=== PATIENT | male | born 1950 ===

== ENCOUNTER 2017-06-21 07:56 | Emergency (ER) | payer OTHER, MEDICARE ==
[2017-06-21 08:10] VITALS: RESP 16; O2SAT 97
[2017-06-21 08:11] VITALS: BMI 26.9
[2017-06-21] MEDS ORDERED: Oxycodone/Acetaminophen 5/325 mg Tab PO ONE (08:31)
--- NOTE | 2017-06-21 09:14 | ED PDOC ---
Upper Extremity Pain/Injury Time Seen by Provider: 06/21/17 08:30 Chief Complaint (Nursing): Upper Extremity Problem/Injury Chief Complaint (Provider): Left Shoulder Pain History Per: Patient History/Exam Limitations: no limitations Onset/Duration Of Symptoms: Days (x 3) Current Symptoms Are (Timing): Still Present Additional Complaint(s): Ranjit is a 67 y/o male who presents to the ED with a history of back surgery complaining of atraumatic pain in his left shoulder that started 3 days ago. He has difficulty moving his left arm, but denies numbness or tingling. He took Aleve for the pain with mild relief, and denies any other medical complaints. PMD: None Provided Past Medical History Reviewed: Historical Data, Nursing Documentation, Vital Signs Vital Signs: Last Vital Signs Temp 98.1 F 06/21/17 08:09 Pulse 93 H 06/21/17 08:09 Resp 16 06/21/17 08:09 BP 132/73 06/21/17 08:09 Pulse Ox 97 06/21/17 08:09 - Medical History PMH: HTN, Hypercholesterolemia, Kidney Stones Denies: Depression, Chronic Kidney Disease - Surgical History Surgical History: Back Surgery Denies: Pacemaker - Family History Family History: States: Unknown Family Hx - Social History Alcohol: < 2 Drinks/Day - Home Medications Home Medications: Ambulatory Orders Medication Instructions Recorded Telmisartan [Micardis] 1 tab PO DAILY 08/03/16 oxyCODONE/Acetaminophen [Percocet 1 tab PO Q6H PRN #5 tab 06/21/17 5/325 mg Tab] - Allergies Allergies/Adverse Reactions: Allergies Allergy/AdvReac Type Severity Reaction Status Date / Time Penicillins Allergy Mild RASH Verified 08/03/16 09:29 Review of Systems ROS Statement: Except As Marked, All Systems Reviewed And Found Negative Musculoskeletal: Positive for: Shoulder Pain (left). Negative for: Other ( numbness, tingling in left shoulder) Physical Exam - Reviewed Nursing Documentation Reviewed: Yes Vital Signs Reviewed: Yes - Physical Exam Appears: Positive for: Non-toxic, No Acute Distress Head Exam: Positive for: ATRAUMATIC, NORMAL INSPECTION, NORMOCEPHALIC Skin: Positive for: Normal Color, Warm, Dry Pulses-Radial (L): 2+ Pulses-Radial (R): 2+ Extremity: Positive for: Normal ROM (Normal ROM in hand, wrist, fingers; difficulty with abduction of left arm), Tenderness (shoulder joint), Capillary Refill (< 2 seconds, neurovascularly intact). Negative for: Deformity, Other ( erythema, step off, signs of cellulitis) - ECG O2 Sat by Pulse Oximetry: 97 (RA) Pulse Ox Interpretation: Normal Medical Decision Making Medical Decision Making: Time: 8:31 Initial Impression: left shoulder pain Initial Plan: --Oxycodone/Acetaminophen --XR Left Shoulder 1001 Patient reports feeling much better. XR reviewed and shows no acute fractures or dislocations. Patient informed of findings, sling given and instructed to follow up with orthopedics. Patient stable for discharge home. Scribe Attestation: Documented by Kin Zavaleta, acting as a scribe for Dr. Jeyson Silverio. Provider Scribe Attestation: All medical record entries made by the Scribe were at my direction and personally dictated by me. I have reviewed the chart and agree that the record accurately reflects my personal performance of the history, physical exam, medical decision making, and the department course for this patient. I have also personally directed, reviewed, and agree with the discharge instructions and disposition. Disposition - Clinical Impression Clinical Impression: Calcific tendinitis of left shoulder - Patient ED Disposition Is Patient to be Admitted: No - Disposition Referrals: Hattie Livingston MD [Staff Provider] - Disposition: Routine/Home Disposition Time: 10:01 Condition: IMPROVED Additional Instructions: follow up with orthopedist as instructed take m otrin for pain wear sling for comfort return to the ED with any worsening or concerning symptoms Prescriptions: oxyCODONE/Acetaminophen [Percocet 5/325 mg Tab] 1 tab PO Q6H PRN #5 tab PRN Reason: Pain, Moderate (4-7) Instructions: Calcific Tendinitis (ED) Forms: [facility] ([place]an), [facility] ED School/Work Excuse Print Language: SERBIAN
--- NOTE | 2017-06-21 09:38 | RAD ---
PROCEDURE: Radiographs of the Left Shoulder HISTORY: left shoulder pain COMPARISON: None available. FINDINGS: BONES: No acute displaced fracture. The distal clavicle and underlying ribs appear intact. JOINTS: No acute dislocation. Dense calcifications adjacent to the humeral head consistent with calcific tendinitis. SOFT TISSUES: Soft tissues appear unremarkable. No evidence of radiopaque foreign body. IMPRESSION: Dense calcifications adjacent to the humeral head consistent with calcific tendinitis.
[2017-06-21 10:11] VITALS: BP 124/75; PULSE 88; TEMP 98
== END 2017-06-21 10:10 | disposition home or self-care (01) ==
LOC: H.ER 07:56
DX: M75.31 Calcific tendinitis of right shoulder (principal)